=== PATIENT | male | born 1995 | race Two or more races ===

== ENCOUNTER 2020-07-12 22:29 | Emergency (ER) | payer MEDICAID ==
[~2020-07-12] VITALS: Ht 182.9 cm; Wt 93.0 kg
[2020-07-12 22:53] VITALS: BP 125/99
[2020-07-13] MEDS ORDERED: IBUP-2029 MT (15:30)
== END 2020-07-13 01:00 | disposition left against medical advice (07) ==
LOC: ER 22:29
DX: F41.9 Anxiety disorder, unspecified (principal); Z86.19 Personal history of other infectious and parasitic diseases
CPT/HCPCS: 93005; 99283

== ENCOUNTER 2020-07-13 11:51 | Emergency (ER) | payer MEDICAID ==
[~2020-07-13] VITALS: Ht 167.6 cm; Wt 90.0 kg
[2020-07-13] MEDS ORDERED: IBUPROFEN 600MG TABLET PO STA (14:47)
[2020-07-13] MEDS ORDERED: LORAZEPAM 0.5MG TABLET PO ONE (15:00)
[2020-07-13 15:05] VITALS: BP 152/94
[2020-07-13] MEDS ORDERED: IBUP-2029 MT (15:30)
== END 2020-07-13 15:38 | disposition home or self-care (01) ==
LOC: ER 11:51
DX: R07.89 Other chest pain (principal); F41.9 Anxiety disorder, unspecified
CPT/HCPCS: 71045; 93005; 99283

== ENCOUNTER 2020-09-28 16:47 | Emergency (ER) | payer MEDICAID ==
[~2020-09-28] VITALS: Ht 167.6 cm; Wt 99.0 kg
[~2020-09-28 16:47] MED LIST: IBUP-2029 MT
[2020-09-28] MEDS ORDERED: LIDOCAINE HCL/PF 1% 10 MG/ML 5ML VIAL INFIL ONE (19:30)
[2020-09-28] MEDS ORDERED: TETANUS, DIPHTHERIA, PERTUSSIS VAC/PF 0.5ML (>7YR OLD) IM ONE (20:00)
[2020-09-28] MEDS ORDERED: IBUPROFEN 600MG TABLET PO NR (20:00)
[2020-09-28] MEDS ORDERED: CEPH500C2 MT (20:02)
[2020-09-28] MEDS ORDERED: SULF1TAB48 MT (20:02)
[2020-09-28 20:28] VITALS: BP 136/62
== END 2020-09-28 20:29 | disposition home or self-care (01) ==
LOC: ER 16:47
DX: L02.31 Cutaneous abscess of buttock (principal); F41.9 Anxiety disorder, unspecified
CPT/HCPCS: 10060; 90471; 90715; 99283; J3490

== ENCOUNTER 2020-10-07 16:36 | Emergency (ER) | payer MEDICAID ==
[~2020-10-07] VITALS: Ht 165.1 cm; Wt 91.0 kg
[~2020-10-07 16:36] MED LIST changes: +CEPH500C2 MT; +SULF1TAB48 MT
[2020-10-07 20:16] LABS: CLARITY URINE CLEAR (CLEAR); COLOR URINE DARK YELLOW (YELLOW); KETONES URINE 1+ (NEGATIVE); LEUKOCYTE ESTERASE URINE TRACE (NEGATIVE); NITRITE URINE NEGATIVE (NEGATIVE); OCCULT BLOOD URINE NEGATIVE (NEGATIVE); PROTEIN URINE TRACE (NEGATIVE); SPECIFIC GRAVITY URINE 1.033 (1.005-1.030)
[2020-10-07] MEDS ORDERED: CEPH500C2 MT (20:57)
[2020-10-07 21:00] VITALS: BP 109/66
== END 2020-10-07 21:02 | disposition home or self-care (01) ==
LOC: ER 16:36
DX: R30.0 Dysuria (principal)
CPT/HCPCS: 81003; 99283

== ENCOUNTER 2021-09-11 20:47 | Emergency (ER) | payer MEDICAID ==
[~2021-09-11] VITALS: Ht 167.6 cm; Wt 91.0 kg
[2021-09-11 20:50] VITALS: BP 122/92
== END 2021-09-12 04:16 | disposition left against medical advice (07) ==
LOC: ER 20:47
DX: Z53.21 Procedure and treatment not carried out due to patient leaving prior to being seen by health care provider (principal)
CPT/HCPCS: 93005

== ENCOUNTER 2023-08-05 15:23 | Emergency (ER) | payer MEDICAID ==
[~2023-08-05] VITALS: Ht 175.3 cm; Wt 100.0 kg
[2023-08-05 15:43] VITALS: O2SAT 100
[2023-08-05 16:07] LABS: BASOPHILS % 1.3 % (0.0-2.0); EOSINOPHILS % 0.9 % (0.0-5.0); HEMATOCRIT. 45.3 % (42.0-52.0); HEMOGLOBIN. 16.3 g/dL (14.0-18.0); LYMPHOCYTES % 27.3 % (20.0-50.0); MEAN CORPUSCULAR HEMOGLOBIN 31.8 pg (28.0-32.0); MEAN CORPUSCULAR HGB CONC 36.1 g/dL (31.0-37.0); MEAN CORPUSCULAR VOLUME 88.3 fL (80.0-94.0); MEAN PLATELET VOLUME 7.4 fl (7.4-10.4); MONOCYTES % 4.5 % (2.0-8.0); PLATELET 349 x1000/uL (130-400); RED BLOOD CELL COUNT 5.13 mill/uL (4.7-6.1); RED CELL DISTRIBUTION WIDTH 13.3 % (11.6-14.6); WHITE BLOOD COUNT 7.4 x1000/uL (4.5-11.0)
[2023-08-05 16:10] LABS: DIFFERENTIAL COMMENT 1
[2023-08-05 16:16] LABS: CHLORIDE 105 mEq/L (98-107); SODIUM 139 mEq/L (136-145)
[2023-08-05 16:17] LABS: CALCIUM 9.9 mg/dL (8.7-10.4); CARBON DIOXIDE 23 mEq/L (21-32)
[2023-08-05 16:22] LABS: CREATININE 0.8 mg/dL (0.6-1.3); GLUCOSE 100 mg/dL (70-105); UREA NITROGEN BLOOD 11 mg/dL (9-23)
[2023-08-05 16:33] LABS: TROPONIN I HIGH SENSITIVITY < 4 ng/L (3.0-53)
[2023-08-05] MEDS: LORAZEPAM 2MG/ML INJ IM ONE (16:37)
[2023-08-05] MEDS ORDERED: HYDR50TA55 MT (16:46)
[2023-08-05 17:04] VITALS: BP 128/88; PULSE 78; RESP 16; TEMP 98.4
== END 2023-08-05 17:06 | disposition home or self-care (01) ==
LOC: ER 15:23
DX: F41.9 Anxiety disorder, unspecified (principal); R07.9 Chest pain, unspecified; R06.4 Hyperventilation
CPT/HCPCS: 99285; 71045; 80048; 85025; 84484; 36415; 93005; 96372; J2060